=== PATIENT | female | born 1955 | race African-American/Black ===

== ENCOUNTER 2017-05-24 01:47 | Emergency (ER) | payer SELFPAY ==
[2017-05-24] MEDS ORDERED: PENICILLIN V POTASSIUM 500 MG TABLET PO ONE (02:17)
[2017-05-24] MEDS ORDERED: IBUPROFEN 600 MG TABLET PO ONE (02:17)
--- NOTE | 2017-05-24 02:18 | ER Document Report ---
ED General - General Chief Complaint: Toothache Stated Complaint: TOOTHACHE Time Seen by Provider: 05/24/17 02:17 Notes: Patient is a 61-year-old female who presents with right jaw pain. Patient states the symptoms have been present for the past 10 hours and does describe as a constant stabbing, aching pain to the right upper and lower jaw that radiates into her right ear. States she has had similar symptoms in the past that they typically resolved. She states that eating or swallowing worsens the pain. Denies any difficulty breathing or swallowing. She has not seen a dentist regarding today's concerns. She denies any fever or constitutional symptoms. She has not tried anything for relief of her pain. TRAVEL OUTSIDE OF THE [place] IN LAST 30 DAYS: No - Related Data Allergies/Adverse Reactions: No Known Allergies Allergy (Unverified 05/24/17 01:59) Past Medical History - General Information source: Patient - Social History Smoking Status: Current Every Day Smoker Frequency of alcohol use: None Drug Abuse: None Lives with: Family Family History: Reviewed & Not Pertinent Renal/ Medical History: Denies: Hx Peritoneal Dialysis Review of Systems - Review of Systems Notes: Constitutional: Negative for fever. HENT: Negative for sore throat. Positive for dental pain Eyes: Negative for visual changes. Cardiovascular: Negative for chest pain. Respiratory: Negative for shortness of breath. Gastrointestinal: Negative for abdominal pain, vomiting or diarrhea. Genitourinary: Negative for dysuria. Musculoskeletal: Negative for back pain. Skin: Negative for rash. Neurological: Negative for headaches, weakness or numbness. 10 point ROS negative except as marked above and in HPI. Physical Exam - Vital signs Vitals: Temp Pulse Resp BP Pulse Ox 98.9 F 93 14 93/68 L 99 05/24/17 01:58 05/24/17 01:58 05/24/17 01:58 05/24/17 01:58 05/24/17 01:58 Interpretation: Normal Notes: PHYSICAL EXAMINATION: GENERAL: Well-appearing, well-nourished and in no acute distress. HEAD: Atraumatic, normocephalic. EYES: sclera anicteric, conjunctiva are normal. ENT: Moist mucous membranes. Diffusely poor dentition. No focal apical abscesses, buccal mucosal edema. Airway is widely patent NECK: Normal range of motion LUNGS: Normal work of breathing HEART: 2+ radial pulses bilaterally EXTREMITIES: no pitting or edema. No cyanosis. NEUROLOGICAL: No focal neurological deficits. Moves all extremities spontaneously and on command. PSYCH: Normal mood, normal affect. SKIN: Warm, Dry, normal turgor, no rashes or lesions noted. Course - Re-evaluation Re-evalutation: 05/24/17 02:18 Presentation is most consistent with likely an infected tooth. Airway is patent. Vitals within normal limits. Patient is able swallow without any difficulty. There is no significant facial swelling. Patient will be started on antibiotics and a limited number of pain medications. I've instructed to follow-up with dentistry as earliest ability for definitive management. Return precautions and follow-up recommendations have been discussed at length. - Vital Signs Vital signs: Temp Pulse Resp BP Pulse Ox 98.9 F 93 14 93/68 L 99 05/24/17 01:58 05/24/17 01:58 05/24/17 01:58 05/24/17 01:58 05/24/17 01:58 Discharge - Discharge Clinical Impression: Pain, dental Condition: Good Disposition: HOME, SELF-CARE Additional Instructions: You have been seen for dental pain. It is very important that you follow-up with a dentist for definitive care. Please return if you develop fever greater than 101, swelling in your face, vomiting, difficulty breathing or swallowing, or any other symptoms that are concerning to you. For pain you should take ibuprofen 600 mg every 6 hours as needed. Prescriptions: Penicillin V Potassium [Penicillin Vk 500 mg Tablet] 500 mg PO BID #20 tablet
[2017-05-24] MEDS ORDERED: BENZONATATE 100 MG CAPSULE PO ONE (02:19)
[2017-05-24 03:17] VITALS: BP 126/77
== END 2017-05-24 03:15 | disposition home or self-care (01) ==
LOC: ER 01:47
DX: K08.9 Disorder of teeth and supporting structures, unspecified (principal); R68.84 Jaw pain; F17.200 Nicotine dependence, unspecified, uncomplicated
CPT/HCPCS: 99283

== ENCOUNTER 2018-01-15 13:26 | Emergency (ER) | payer SELFPAY ==
[2018-01-15] MEDS ORDERED: DEXAMETHASONE SOD PHOS INJ 10 MG/1 ML VIAL IM ONE (14:46)
--- NOTE | 2018-01-15 14:46 | ER Document Report ---
HPI - HPI Patient complains to provider of: rash Onset: Other - 3 days Onset/Duration: Gradual Quality of pain: Other - itchy Severity: Severe Pain Level: 5 Context: Patient states rash began on upper back about 3 days ago and has now spread to her chest and upper arms. Denies new products, new foods. Denies having similar rash in the past. Associated Symptoms: None Exacerbated by: Other - scratching Relieved by: Denies Similar symptoms previously: No Recently seen / treated by doctor: No - ROS ROS below otherwise negative: Yes Systems Reviewed and Negative: Yes All other systems reviewed and negative - CONSTITUTIONAL Constitutional: DENIES: Fever - EENT EENT: DENIES: Congestion - NEURO Neurology: DENIES: Headache - CARDIOVASCULAR Cardiovascular: DENIES: Chest pain - RESPIRATORY Respiratory: DENIES: Trouble Breathing - GASTROINTESTINAL Gastrointestinal: DENIES: Abdominal Pain - URINARY Urinary: DENIES: Dysuria - MUSCULOSKELETAL Musculoskeletal: DENIES: Extremity pain - DERM Skin Problems: Rash Past Medical History - General Information source: Patient - Social History Smoking Status: Never Smoker Frequency of alcohol use: Occasional Drug Abuse: None Lives with: Family Family History: Reviewed & Not Pertinent EENT Medical History: Reports: Other - seasonal allergies Surgical Hx: Negative Vertical Provider Document - CONSTITUTIONAL Agree With Documented VS: Yes Exam Limitations: No Limitations General Appearance: WD/WN, No Apparent Distress - INFECTION CONTROL TRAVEL OUTSIDE OF THE [place] IN LAST 30 DAYS: No - HEENT HEENT: Normal ENT Exam, Normocephalic - NECK Neck: Normal Inspection - RESPIRATORY Respiratory: Breath Sounds Normal, No Respiratory Distress - CARDIOVASCULAR Cardiovascular: Regular Rate, Regular Rhythm - GI/ABDOMEN Gastrointestinal: Abdomen Soft - MUSCULOSKELETAL/EXTREMETIES Musculoskeletal/Extremeties: MAEW - NEURO Level of Consciousness: Awake, Alert, Appropriate - DERM Integumentary: Warm, Dry, Rash - Patchy red, scaly flat rash, to upper back, chest, and upper arms. Several areas red from scratching, but do not look infected. Course - Vital Signs Vital signs: Temp Pulse Resp BP Pulse Ox 98.1 F 97 16 121/77 99 01/15/18 13:35 01/15/18 13:35 01/15/18 13:35 01/15/18 13:35 01/15/18 13:35 Discharge - Discharge Clinical Impression: Rash Condition: Good Disposition: HOME, SELF-CARE Additional Instructions: Claritin daily x 14 days, may use OTC benadryl as needed for breakthrough itching Pepcid every 12 hrs x 10 days Hydrocortisone cream as prescribed [place] solution compresses follow up with [facility] to establish for heatare needs return as needed Prescriptions: Famotidine 20 mg PO BID 10 Days #20 tablet Hydrocortisone [Cortisone] 60 gm TP BID #60 cream..g. Loratadine 10 mg PO BID #14 tablet
[2018-01-15] MEDS ORDERED: LORATADINE 10 MG TABLET PO ONE (14:52)
[2018-01-15] MEDS ORDERED: FAMOTIDINE 20 MG TABLET PO ONE (14:52)
[2018-01-15 16:01] VITALS: BP 103/66
== END 2018-01-15 16:00 | disposition home or self-care (01) ==
LOC: ER 13:26
DX: R21 Rash and other nonspecific skin eruption (principal); L29.9 Pruritus, unspecified
CPT/HCPCS: 99282; 96372; J1100